=== PATIENT | male | born 1955 | race Hispanic/Latino ===

== ENCOUNTER 2020-09-18 10:37 | Emergency (ER) | payer OTHER ==
--- OUTSIDE RECORDS SUMMARY | 2020-09-18 10:40 | XMS REPORT | Clinical Summary ---
:1955 Author Organization [facility] Address [address] [place] [address] Care Team Providers Name Role Phone Amanda Salazar MD Primary Care Provider [phone] Allergies Active Allergy Reactions Severity Noted Date Comments Dexlansoprazole 10/28/2016 Etodolac 10/28/2016 Grape Juice Hives 11/21/2008 Iodine Diarrhea 11/21/2008 Nausea, fever, sweating Nausea, fever, sweating Iodine And Iodide Containing Products Levofloxacin Other (See Comments) 12/10/2017 Meloxicam Penicillins Hives 11/21/2008 Patient states he is not allergic per allergy testing . Medications Medication Sig Dispensed Refills Start Date End Date Status allopurinol (ZYLOPRIM) Take 300 mg by 3 09/24/2016 Active 300 MG tablet mouth once daily. clonAZEPAM (KlonoPIN) 1 Take 1 mg by 3 08/16/2016 Active MG tablet mouth nightly. omeprazole (PriLOSEC) TAKE ONE CAPSULE 0 10/02/2016 Active 40 MG capsule BY MOUTH EVERY DAY BEFORFE A MEAL atorvastatin (LIPITOR) Take 10 mg by 4 08/03/2016 Active 10 MG tablet mouth once daily. irbesartan (AVAPRO) 300 Take 300 mg by 0 10/02/2016 Active MG tablet mouth once daily. amLODIPine (NORVASC) 10 Take 10 mg by 0 10/02/2016 Active mg tablet mouth once daily. carvedilol (COREG) TAKE 1 TABLET BY 0 10/02/2016 Active 3.125 MG tablet MOUTH 2 TIMES A DAY WITH FOOD ACCU-CHEK MERISSA PLUS 3 (three) times a 5 10/07/2016 Active TEST STRP strip test day. strips HEMATINIC/FOLIC ACID Take 1 tablet by 4 09/09/2016 Active 324 mg (106 mg iron)-1 mouth once daily. mg tablet per tablet ACCU-CHEK MULTICLIX TO TEST GLUCOSE 3 09/23/2016 Active LANCET lancets LEVELS 3 TIMES A DAY DX CODE: 250.02 aspirin (ECOTRIN) 81 MG Take 81 mg by 0 Active enteric coated tablet mouth daily. cyanocobalamin, vitamin Place under the 0 Active B-12, (VITAMIN B-12) tongue daily. 1,000 mcg tablet, sublingual cholecalciferol, Take by mouth 0 Active vitamin D3, (VITAMIN daily. D3) 5,000 unit tablet CIALIS 5 mg tablet Take 5 mg by 11 03/01/2017 Active mouth once daily. ONETOUCH DELICA LANCETS USE TO TEST 3 3 08/19/2017 Active 33 gauge misc TIMES A DAY DX: E11.65 metFORMIN (GLUCOPHAGE) Take 1,000 mg by 0 03/12/2010 Active 1,000 mg tablet mouth. Active Problems Problem Noted Date Gout involving toe of left foot 11/22/2018 Overview: Taking Allopurinol 300mg qd no recent gout flare up usually in left toe Last Assessment & Plan: Will continue Allopurinol Polyp of colon 11/22/2018 Overview: H/o colon polyps, also brother has h/o Colon Cancer Last Colonoscopy in 2015 Had Cologuard in 2017 Last Assessment & Plan: See GI for Colonoscopy- Sees Dr Fox Alvarado's esophagus with dysplasia 11/22/2018 Dizzinesses 11/19/2017 Overview: c/o dizziness denies cp/sob/cai Saw equipment oiler Dr Jabari Ndiaye and had Negative Cardiac workup Last Assessment & Plan: Dizziness is worse Had cardiac workup- EKG was normal- Dr Ankur Ndiaye Refer to ENT- Dr Connell/ Dr Thurman Prostatitis, acute 11/19/2017 Overview: sees Uro-Dr Gaines Symptoms improved after Doxy Has regular f/u with Urology and PSA amandeep ck Last Assessment & Plan: Managed by urology Dr Gaines Benign essential hypertension 02/20/2009 Overview: Here for HTN management- Home readings 120-130/80s Taking Avapro 300mg qd, Coreg 3.125mg bi d No CP/SOB/edema/Palpitations Reports dizziness off and on For Dizziness- Seen equipment oiler Dr Tomy Ndiaye- had EKG- normal, had normal Carotid Doppler-Jabari Ndiaye , had 7 days Holter- waiting results-, was told no Stress test needed at this time. was told to see ENT- not seen ENT Seen Dr Heena Cruz requests tania dubon ENT referral Last Assessment & Plan: BP is at goal, recommended to continue HTN meds Morbid obesity 02/20/2009 Overview: No dietary modification or exercise currently Last Assessment & Plan: Diet and Exercise modification discussed in order to achieve an optimal BMI around 25 to maintain healthy lifestyle Diabetes mellitus 02/20/2009 Overview: Managed by Endocrine, Dr Lamar Ricardo Taking Metformin 500mg bid , last HbA1C 5.3 in 09/2018 had Diabates eye exam-and Glaucoma test ing-Dr Bhatti in [place] Last Assessment & Plan: Controlled continue with current treatment Immunizations Name Administration Dates Next Due Influenza, Unspecified 05/18/2018 Pneumococcal Conjugate 13-Valent 06/03/2018 Tdap 06/03/2018 Surgical History Surgery Date Site/Laterality Comments APPENDECTOMY COLONOSCOPY 10/31/2015 Dr Abhinav murdock- sessile polyps, Diverticula in descending colon , Hemorrhoids- Int and Ext UPPER GASTROINTESTINAL ENDOSCOPY GALLBLADDER SURGERY ORTHOPEDIC SURGERY SINUS SURGERY SPINE SURGERY RESECTION, COLON, 08/17/2003 - Dr Tello- G en ABDOMINOPERINEAL 08/16/2004 Surgery, sec to blockage COLONOSCOPY W/ POLYPECTOMY 08/17/2000 - Pre-C ancerous lesions 08/16/2001 ESOPHAGOSCOPY / EGD 10/20/2011 Alvarado's Es ophagus- Dr Fox STEROID INJECTION KNEE 08/17/2015 - Left Sess Orth o- Dr Fajardo 08/16/2016 [place] Medical History Medical History Date Comments Allergic Anemia Arthritis Diabetes mellitus (HCC) GERD (gastroesophageal reflux disease) Headache HL (hearing loss) Hypertension 07/06/2014 Nuclear Stress Test- normal, Dr Jabari Ndiaye in [place] Visual impairment Morbid obesity (HCC) Family History Medical History Relation Name Comments Colon cancer Brother Dewey Colon polyps Brother Laz pre-cancerous po lyps Diabetes Brother Laz Heart disease Brother Laz Diabetes type II Brother Maurice Arthritis Father Hearing loss Father Arthritis Mother Diabetes Mother Colon cancer Sister Relation Name Status Comments Brother Dewey Brother Laz Alive Brother Maurice Alive Father Mother Sister Social History Tobacco Use Types Packs/Day Years Used Date Former Smoker Cigarettes 1.5 15 12/19/1964 - 0 12/19/1981 Smokeless Tobacco: Never Used Tobacco Cessation: Counseling Given: No Alcohol Use Drinks/Week oz/Week Comments No Sex Assigned at Date Recorded Not on file Last Filed Vital Signs Not on file Plan of Treatment Health Maintenance Due Date Last Done Comments DIABETIC FOOT EXAM 1963 URINE MICROALBUMIN 1963 COVID-19 VACCINE (1 of 2) 1969 SHINGLES VACCINES (#1) 2003 65+ PNEUMOCOCCAL VACCINE (2 of 2 - PPSV23) 06/03/201906/03, 10/19/2011 INFLUENZA VACCINE 03/17/2020 05/18/2018, 05/18/2018 DIABETES: RETINAL EYE EXAM 11/04/2020 11/04/2018 COLONOSCOPY SCREENING 07/20/2028 07/20/2018, 05/17/2016 Results Not on fileafter 09/18/2019 Advance Directives For more information, please contact: [phone] Type Date Recorded Patient System Administration Manager Explanati on Advance Directives, Living Will and Medical Power of Building Guard Deputy Sheriff
[2020-09-18 12:10] LABS: Urine Blood NEGATIVE (NEG); Urine Glucose NEGATIVE (NEG); Urine Protein NEGATIVE (NEG)
[2020-09-18 14:05] LABS: Absolute Lymphocytes (CBC) 1.7 K/uL (0.7-4.9); Hematocrit 42.6 % (39.6-49.0); Lymphocytes % 25.2 % (15.3-44.8); MPV 8.7 fL (7.6-11.3); RBC Red Blood Cell Count 4.43 M/uL (4.33-5.43)
--- NOTE | 2020-09-18 14:09 | RAD REPORT ---
EXAM DESCRIPTION: RAD - Chest Single View - 09/18/2020 1:49 pm CLINICAL HISTORY: chills COMPARISON: Two view chest December 2010 TECHNIQUE: AP portable chest image was obtained 09/18/2020 1:49 pm . FINDINGS: No focal lung parenchymal process. Interstitial pattern is not substantially different whe n adjusting for portable technique and more shallow inspiratory effort. Failure and volume overload a re not suspected. Heart and vasculature are normal. No measurable pleural effusion and no pneumothora x. No acute bony abnormality seen. No acute aortic findings suspected. IMPRESSION: No acute cardiopulmonary process. No significant change from comparison study.
[2020-09-18 14:25] LABS: Urine Bacteria NONE SEEN /HPF (NONE SEEN); Urine RBC <5 /HPF (NONE SEEN)
[2020-09-18 14:25] LABS: Albumin 4.5 g/dL (3.4-5.0); Bilirubin Total 0.6 mg/dL (0.2-1.0); Protein, Total 7.8 g/dL (6.4-8.2)
--- NOTE | 2020-09-18 15:14 | ER ---
Nurse's Notes [facility] Name: Facundo Pfeiffer Age: 65 yrs Sex: Male : 1955 Arrival Date: 09/18/2020 Time: 10:42 Bed 4 Private MD: Diagnosis: Chills (without fever) Presentation: 09/18 11:15 Chief complaint: Patient states: started having chills last night and has pain at the iw tip of his penis, pt is uncircumcised, it doesn't burn to urinate, denies redness or swelling. Coronavirus screen: chills. Ebola Screen: Patient negative for fever greater than or equal to 101.5 degrees Fahrenheit, and additional compatible Ebola Virus Disease symptoms Patient denies exposure to infectious person. Patient denies travel to an Ebola-affected area in the 21 days before illness onset. No symptoms or risks identified at this time. Initial Sepsis Screen: Does the patient meet any 2 criteria? No. Patient's initial sepsis screen is negative. Does the patient have a suspected source of infection? No. Patient's initial sepsis screen is negative. Risk Assessment: Do you want to hurt yourself or someone else? Patient reports no desire to harm self or others. Onset of symptoms was September 17, 2020. 11:15 Method Of Arrival: Ambulatory iw 11:15 Acuity: WILBER 3 iw Historical: - Allergies: 11:21 Dexilant; iw 11:21 Iodine; iw 11:21 tramadol; iw 11:21 Etodolac; iw - Home Meds: 11:21 metformin 500 mg Oral Tb24 2 tabs 2 times per day [Active]; irbesartan 300 mg oral tab iw 1 tab once daily [Active]; amlodipine 10 mg tab once daily [Active]; carvedilol 3.125 mg oral tab 1 tab 2 times per day [Active]; Vitamin D Oral daily [Active]; allopurinol 300 mg Oral tab 1 tab once daily [Active]; hemantic plus daily [Active]; omeprazole 40 mg Oral cpDR 1 cap once daily [Active]; atorvastatin 10 mg oral tab 1 tab once daily [Active]; aspirin 81 mg Oral TbEC 1 tab once daily [Active]; latanoprost 0.005 % ophthalmic drop 1 drop once daily [Active]; - PMHx: 11:21 Hypertension; Diabetes - NIDDM; Gout; Anemia; Alvarado's esophagus; Hyperlipidemia; iw tremors; - PSHx: 11:18 right knee sx; iw 11:21 back; iw 11:22 colon resection; Cholecystectomy; neck; back; iw - Immunization history:: Adult Immunizations up to date. - Social history:: Smoking status: Patient/guardian denies using tobacco, but has a distant history of tobacco abuse, Patient/guardian denies using alcohol, street drugs, The patient lives with family. - Family history:: not pertinent. Screenin:09 Abuse screen: Denies threats or abuse. Denies injuries from another. Nutritional jl7 screening: No deficits noted. Tuberculosis screening: No symptoms or risk factors identified. Fall Risk None identified. Assessment: 13:00 General: Appears in no apparent distress. uncomfortable, Behavior is calm, cooperative, jl7 appropriate for age. Pain: Complains of pain in head of penis Pain currently is 5 out of 10 on a pain scale. Pain began 2-3 days ago. Neuro: Level of Consciousness is awake, alert, obeys commands, Oriented to person, place, time, situation. Cardiovascular: Patient's skin is warm and dry. Respiratory: Airway is patent Respiratory effort is even, unlabored, Respiratory pattern is regular, symmetrical. GI: No signs and/or symptoms were reported involving the gastrointestinal system. : Reports pain head of penis Denies burning with urination, pain with urination. Derm: Skin is pink, warm \\T\\ dry. 13:09 Reassessment: ERD at bedside. jl7 13:11 Reassessment: Pt reports "I have diabetes and my sugar might be low." BGL checked, 106. jl7 14:00 Reassessment: Patient appears in no apparent distress at this time. No changes from jl7 previously documented assessment. Patient and/or family updated on plan of care and expected duration. Pain level reassessed. Patient is alert, oriented x 3, equal unlabored respirations, skin warm/dry/pink. 15:00 Reassessment: Patient appears in no apparent distress at this time. No changes from jl7 previously documented assessment. Patient and/or family updated on plan of care and expected duration. Pain level reassessed. Patient is alert, oriented x 3, equal unlabored respirations, skin warm/dry/pink. 15:15 Reassessment: ERD at bedside discussing POC. jl7 Vital Signs: 11:15 BP 130 / 61; Pulse 88; Resp 16; Temp 98.4; Pulse Ox 100% on R/A; Weight 91.63 kg; iw Height 5 ft. 7 in. (170.18 cm); 13:09 BP 139 / 59; Pulse 94; Resp 15; Pulse Ox 100% ; Pain 5/10; jl7 14:43 BP 119 / 50; Pulse 91; Resp 15; Pulse Ox 100% ; jl7 11:15 Body Mass Index 31.64 (91.63 kg, 170.18 cm) iw ED Course: 10:42 Patient arrived in ED. as 11:17 Triage completed. iw 11:18 Arm band placed on. iw 12:57 Norah Galvez MD is Attending Physician. ma2 12:59 Kyaw Meza RN is Primary Nurse. jl7 13:09 Patient has correct armband on for positive identification. Bed in low position. Call [facility] light in reach. Side rails up X 1. Pulse ox on. NIBP on. 13:11 Urine collected: clean catch specimen, clear. 5 13:18 Glucose, Ancillary Testing Sent. 5 13:18 Urine Microscopic Only Sent. 5 13:18 Urine Dipstick--Ancillary (enter results) Sent. 5 13:49 CXR XRAY In Process Unspecified. EDMS 13:57 Initial lab(s) drawn, by ut, sent to lab. COVID swab sent to lab. Flu and/or RSV swab mh5 sent to lab. Strep swab sent to lab. Inserted saline lock: 20 gauge in right antecubital area, using aseptic technique. Blood collected. 13:58 Flu Sent. 5 13:58 Comprehensive Metabolic Panel Sent. 5 13:58 CBC with Automated Diff Sent. 5 13:58 Strep Sent. 5 13:58 CMP Sent. 5 13:58 CBC with Diff Sent. mh5 14:02 CBC with Automated Diff Sent. 5 14:02 Strep Sent. 5 14:02 Comprehensive Metabolic Panel Sent. mh5 15:13 Chong Pena MD is Referral Physician. ma2 15:21 No provider procedures requiring assistance completed. IV discontinued, intact, jl7 bleeding controlled, No redness/swelling at site. Pressure dressing applied. Administered Medications: No medications were administered Outcome: 15:13 Discharge ordered by . chaim 15:21 Discharged to home ambulatory. 7 15:21 Condition: stable 15:21 Discharge instructions given to patient, Instructed on discharge instructions, follow up and referral plans. medication usage, Demonstrated understanding of instructions, follow-up care, medications, Prescriptions given X 1. 15:22 Patient left the ED. 7 Signatures: Dispatcher [employer] EDMT Angelica Tello Irene, RN RN Abena Tello [facility] Kyaw Meza RN RN 7 Norah Galvez MD MD ma2 Corrections: (The following items were deleted from the chart) 14:35 13:58 CORONAVIRUS+MR.LAB.BRZ drawn and sent. [address] 14:35 13:58 Influenza Screen (A drawn and sent. [address]
--- NOTE | 2020-09-18 15:14 | EDPHYS ---
Physician Documentation [facility] Name: Facundo Pfeiffer Age: 65 yrs Sex: Male : 1955 Arrival Date: 09/18/2020 Time: 10:42 Bed 4 Private MD: ED Physician Norah Galvez HPI: 09/18 15:10 This 65 yrs old Male presents to ER via Ambulatory with complaints of Urinary ma2 Problem, chills. 15:10 Onset: The symptoms/episode began/occurred gradually, 1 day(s) ago. Severity of ma2 symptoms: At their worst the symptoms were mild in the emergency department the symptoms are unchanged. Severity of symptoms: At their worst the symptoms were in the emergency department the symptoms have resolved. The patient has not experienced similar symptoms in the past. Historical: - Allergies: 11:21 Dexilant; iw 11:21 Iodine; iw 11:21 tramadol; iw 11:21 Etodolac; iw - Home Meds: 11:21 metformin 500 mg Oral Tb24 2 tabs 2 times per day [Active]; irbesartan 300 mg oral tab iw 1 tab once daily [Active]; amlodipine 10 mg tab once daily [Active]; carvedilol 3.125 mg oral tab 1 tab 2 times per day [Active]; Vitamin D Oral daily [Active]; allopurinol 300 mg Oral tab 1 tab once daily [Active]; hemantic plus daily [Active]; omeprazole 40 mg Oral cpDR 1 cap once daily [Active]; atorvastatin 10 mg oral tab 1 tab once daily [Active]; aspirin 81 mg Oral TbEC 1 tab once daily [Active]; latanoprost 0.005 % ophthalmic drop 1 drop once daily [Active]; - PMHx: 11:21 Hypertension; Diabetes - NIDDM; Gout; Anemia; Alvarado's esophagus; Hyperlipidemia; iw tremors; - PSHx: 11:18 right knee sx; iw 11:21 back; iw 11:22 colon resection; Cholecystectomy; neck; back; iw - Immunization history:: Adult Immunizations up to date. - Social history:: Smoking status: Patient/guardian denies using tobacco, but has a distant history of tobacco abuse, Patient/guardian denies using alcohol, street drugs, The patient lives with family. - Family history:: not pertinent. ROS: 15:10 Constitutional: Negative for fever, chills, and weight loss. ma2 15:10 All other systems are negative. Exam: 15:10 Constitutional: This is a well developed, well nourished patient who is awake, alert, ma2 and in no acute distress. Head/Face: Normocephalic, atraumatic. Eyes: Pupils equal round and reactive to light, extra-ocular motions intact. Lids and lashes normal. Conjunctiva and sclera are non-icteric and not injected. Cornea within normal limits. Periorbital areas with no swelling, redness, or edema. ENT: Nares patent. No nasal discharge, no septal abnormalities noted. Tympanic membranes are normal and external auditory canals are clear. Oropharynx with no redness, swelling, or masses, exudates, or evidence of obstruction, uvula midline. Mucous membranes moist. Neck: Trachea midline, no thyromegaly or masses palpated, and no cervical lymphadenopathy. Supple, full range of motion without nuchal rigidity, or vertebral point tenderness. No Meningismus. Chest/axilla: Normal chest wall appearance and motion. Nontender with no deformity. No lesions are appreciated. Cardiovascular: Regular rate and rhythm with a normal S1 and S2. No gallops, murmurs, or rubs. Normal PMI, no JVD. No pulse deficits. Respiratory: Lungs have equal breath sounds bilaterally, clear to auscultation and percussion. No rales, rhonchi or wheezes noted. No increased work of breathing, no retractions or nasal flaring. Abdomen/GI: Soft, non-tender, with normal bowel sounds. No distension or tympany. No guarding or rebound. No evidence of tenderness throughout. Back: No spinal tenderness. No costovertebral tenderness. Full range of motion. Skin: Warm, dry with normal turgor. Normal color with no rashes, no lesions, and no evidence of cellulitis. MS/ Extremity: Pulses equal, no cyanosis. Neurovascular intact. Full, normal range of motion. Neuro: Awake and alert, GCS 15, oriented to person, place, time, and situation. Cranial nerves II-XII grossly intact. Motor strength 5/5 in all extremities. Sensory grossly intact. Cerebellar exam normal. Normal gait. Vital Signs: 11:15 BP 130 / 61; Pulse 88; Resp 16; Temp 98.4; Pulse Ox 100% on R/A; Weight 91.63 kg; iw Height 5 ft. 7 in. (170.18 cm); 13:09 BP 139 / 59; Pulse 94; Resp 15; Pulse Ox 100% ; Pain 5/10; jl7 14:43 BP 119 / 50; Pulse 91; Resp 15; Pulse Ox 100% ; jl7 11:15 Body Mass Index 31.64 (91.63 kg, 170.18 cm) iw MDM: 12:57 Patient medically screened. ma2 15:10 Differential Diagnosis uti, covid, vs electrolyte disturbance vs uri. Data reviewed: ma2 vital signs, nurses notes. Counseling: I had a detailed discussion with the patient and/or guardian regarding: the historical points, exam findings, and any diagnostic results supporting the discharge/admit diagnosis, the presence of at least one elevated blood pressure reading (>120/80) during this emergency department visit, the need for outpatient follow up. Response to treatment: the patient's symptoms have markedly improved after treatment. ED course: discussed with dr. Pena he advised for discharge, all test negative, covid is pending... 09/18 11:44 Order name: Urine Microscopic Only; Complete Time: 14:42 09/18 11:48 Order name: Urine Dipstick--Ancillary (enter results) 09/18 12:10 Order name: Urine Dipstick-Ancillary; Complete Time: 13:27 [facility] 09/18 13:16 Order name: Glucose, Ancillary Testing [facility] 09/18 13:29 Order name: CBC with Diff [facility] 09/18 13:29 Order name: CMP la2 09/18 13:29 Order name: Flu la2 09/18 13:29 Order name: Strep; Complete Time: 14:16 [facility] 09/18 13:29 Order name: CBC with Automated Diff; Complete Time: 14:16 [facility] 09/18 13:29 Order name: Comprehensive Metabolic Panel; Complete Time: 14:42 [facility] 09/18 14:14 Order name: Throat Culture [facility] 09/18 11:44 Order name: Urine Dipstick-Ancillary (obtain specimen); Complete Time: 13:03 09/18 11:53 Order name: Labs - recollect needed: recollect urine,sample leaked; Complete Time: 13:03 09/18 13:29 Order name: CXR XRAY; Complete Time: 14:16 ma2 Administered Medications: No medications were administered Disposition: 09/18/20 15:13 Discharged to Home. Impression: Chills (without fever). - Condition is Stable. - Discharge Instructions: Dysuria. - Prescriptions for Diclofenac Sodium 75 mg Oral Tablet Sustained Release - take 1 tablet by ORAL route 2 times per day; 30 tablet. - Medication Reconciliation Form, Thank You Letter, Antibiotic Education, Prescription Opioid Use form. - Follow up: Chong Pena MD; When: Tomorrow; Reason: Continuance of care. Signatures: Dispatcher [employer] EDMS Ary Helms Irene, RN RN iw Kyaw Meza RN RN jl7 Norah Galvez MD MD ma2 Corrections: (The following items were deleted from the chart) 14:35 13:29 Influenza Screen (A ordered. EDMS EDMS 14:35 13:37 CORONAVIRUS+MR.LAB.BRZ ordered. EDMS EDMS 15:22 15:13 09/18/2020 15:13 Discharged to Home. Impression: Chills (without fever). jl7 Condition is Stable. Prescriptions for Diclofenac Sodium 75 mg Oral Tablet Sustained Release - take 1 tablet by ORAL route 2 times per day; 30 tablet. and Forms are Medication Reconciliation Form, Thank You Letter, Antibiotic Education, Prescription Opioid Use. Follow up: Chong Pena; When: Tomorrow; Reason: Continuance of care. ma2
[2020-09-18 15:26] VITALS: TEMP 98.4; O2SAT 100
[2020-09-18 15:29] VITALS: BP 119/50
[2020-09-18 15:46] LABS: SARS-COV-2 RT PCR NEGATIVE (NEGATIVE)
== END 2020-09-18 15:22 | disposition home or self-care (01) ==
LOC: ER 10:37
DX: R68.83 Chills (without fever) (principal); Z20.822 Contact with and (suspected) exposure to COVID-19; I10 Essential (primary) hypertension; E11.9 Type 2 diabetes mellitus without complications; M10.9 Gout, unspecified; E78.5 Hyperlipidemia, unspecified; K22.70 Barrett's esophagus without dysplasia; Z79.84 Long term (current) use of oral hypoglycemic drugs
CPT/HCPCS: 87070; 85025; 36415; 82947; 87081; 80053; 0240U; 71045; 99284; 81003; 81015

== ENCOUNTER 2021-03-26 08:20 | Emergency (ER) | payer OTHER ==
[2021-03-26 09:31] LABS: Protime INR 1.03
[2021-03-26 09:34] LABS: Basophils % 0.9 % (0-1.3); Hematocrit 43.4 % (39.6-49.0); MPV 8.5 fL (7.6-11.3); RBC Red Blood Cell Count 4.55 M/uL (4.33-5.43)
[2021-03-26 09:36] LABS: ALT/SGPT 32 U/L (12-78); AST/SGOT 17 U/L (15-37); Albumin 4.3 g/dL (3.4-5.0); Alkaline Phosphatase 122 U/L (45-117); BUN Blood Urea Nitrogen 15 mg/dL (7-18); Bicarbonate 28 mmol/L (21-32); Bilirubin Direct 0.2 mg/dL (0-0.2); Bilirubin Total 0.7 mg/dL (0.2-1.0); Glucose Level 108 mg/dL (74-106); Magnesium 2.4 mg/dL (1.8-2.4); NT PRO-BNP 53 pg/mL (<125); Potassium 3.9 mmol/L (3.5-5.1); Protein, Total 7.4 g/dL (6.4-8.2); Sodium Level 140 mmol/L (136-145); Troponin (Emerg Dept Use Only) < 0.02 ng/mL (0.0-0.045)
--- NOTE | 2021-03-26 09:53 | RAD REPORT ---
EXAM DESCRIPTION: RAD - Chest Single View - 03/26/2021 9:32 am CLINICAL HISTORY: PALPITATIONS COMPARISON: September 18, 2020 TECHNIQUE: AP portable chest image was obtained 03/26/2021 9:32 am . FINDINGS: No focal lung parenchymal process. Interstitial pattern matches comparison. Heart and vasc ulature are normal. No measurable pleural effusion and no pneumothorax. No acute bony abnormality see n. No acute aortic findings suspected. IMPRESSION: No acute cardiopulmonary process. No significant change from comparison study.
--- NOTE | 2021-03-26 10:51 | RAD REPORT ---
EXAM DESCRIPTION: CT - Thorax Wo Con - 03/26/2021 10:02 am CLINICAL HISTORY: PALPITATIONS COMPARISON: <Comparisons> TECHNIQUE: Axial 5 mm thick images of the chest were obtained without IV contrast. All CT scans are performed using dose optimization technique as appropriate and may include automated exposure control or mA/KV adjustment according to patient size. FINDINGS: No mass or infiltrate in the lung parenchyma. No pleural thickening or pleural effusion. N o pneumothorax. No abnormal mediastinal or hilar masses or lymphadenopathy seen. No gross aortic or pulmonary artery finding suspected. Assessment is limited in the absence of IV contrast. No cardiomegaly or pericardi al effusion. No chest wall mass or abnormal axillary lymphadenopathy. No fracture or acute bone finding identifiab le. Endplate spurring changes are seen at multiple levels with bridging ossification across multiple levels. IMPRESSION: Negative non-contrast CT chest examination for acute finding.
--- NOTE | 2021-03-26 10:57 | ER ---
Nurse's Notes [facility] Name: Facundo Pfeiffer Age: 66 yrs Sex: Male : 1955 Arrival Date: 03/26/2021 Time: 08:55 Bed Waiting Private MD: Diagnosis: Palpitations Presentation: 03/26 08:55 Chief complaint: Patient states: palpatation from December. da3 08:55 Method Of Arrival: EMS da3 08:55 Acuity: WILBER 3 da3 08:58 Ebola Screen: No symptoms or risks identified at this time. Risk Assessment: Do you da3 want to hurt yourself or someone else? Patient reports no desire to harm self or others. 08:58 Acuity: WILBRE 3 da3 Triage Assessment: 08:59 General: Appears in no apparent distress. comfortable. da3 Historical: Vital Signs: 08:58 BP 119 / 62; Pulse 78; Resp 18; Temp 98.2; Pulse Ox 100% on R/A; da3 ED Course: 08:52 Initial lab(s) drawn, by me, sent to lab. Inserted saline lock: in right antecubital kj1 area, using aseptic technique. Blood collected. 08:55 Patient arrived in ED. ds1 08:56 Triage completed. da3 09:00 Sona Oconnor FNP-C is [facility]. kb 09:00 Jamar Gibbs MD is Attending Physician. kb 09:33 XRAY Chest (1 view) In Process Unspecified. EDMS 10:02 Thorax Wo Con In Process Unspecified. EDMS Administered Medications: No medications were administered Outcome: 10:56 Discharge ordered by . kb 11:02 Patient left the ED. da3 Signatures: Dispatcher [employer] EDMS Sona Oconnor FNP-C FNP-Ckb Sanford, Demi ds1 Isela Oconnor kj1 Korey Goel RN RN da3 Corrections: (The following items were deleted from the chart) 08:57 08:56 PMHx: Hypertension; da3 da3 08:57 08:56 PMHx: Diabetes - NIDDM; da3 da3 08:57 08:56 PMHx: Gout; da3 da3 08:57 08:56 PMHx: Anemia; da3 da3 08:57 08:56 PMHx: Alvarado's Esophagus; da3 da3 08:57 08:56 PMHx: Hyperlipidemia; da3 da3 08:57 08:56 PMHx: tremors; da3 da3
--- NOTE | 2021-03-26 10:57 | EDPHYS ---
Physician Documentation [facility] Name: Facundo Pfeiffer Age: 66 yrs Sex: Male : 1955 Arrival Date: 03/26/2021 Time: 08:55 Bed Waiting Private MD: ED Physician Jamar Gibbs HPI: 03/26 10:33 This 66 yrs old Male presents to ER via EMS with complaints of Palpitations. kb 10:33 The patient presents with a history of irregular heart beat. Context: The symptoms kb occur without known cause. Onset: The symptoms/episode began/occurred 4 month(s) ago, and became worse this morning. Duration: The patient or guardian reports multiple episodes. Modifying factors: The symptoms are aggravated by nothing. The symptoms are alleviated by nothing. Associated signs and symptoms: Pertinent positives: fatigue, Pertinent negatives: chest pain, cough, lightheadedness, SOB, syncope. Severity of symptoms: At their worst the symptoms were mild in the emergency department the symptoms are unchanged. The patient has not experienced similar symptoms in the past. The patient has not recently seen a physician. Pt reports he started feeling an irregular heartbeat in December. States they increased his carvidolol from 3.125mg to 6.25mg at the time. Then he started having dizziness and fainting spells so they decreased it back to 3.125. States he has continued to have the irregular heartbeat at times. Today he felt the irregular heartbeat and had fatigue. . Historical: ROS: 10:33 Respiratory: Negative for shortness of breath, cough, wheezing, and pleuritic chest kb pain. 10:33 Constitutional: Positive for fatigue, Negative for body aches, chills, fever, malaise, poor PO intake, weight loss. 10:33 Cardiovascular: Positive for palpitations. 10:33 All other systems are negative. Exam: 09:31 ECG was reviewed by the Attending Physician. kb 10:32 Constitutional: This is a well developed, well nourished patient who is awake, alert, kb and in no acute distress. Head/Face: Normocephalic, atraumatic. ENT: Moist Mucous membranes Cardiovascular: Regular rate and rhythm with a normal S1 and S2. No gallops, murmurs, or rubs. No pulse deficits. Respiratory: Respirations even and unlabored. No increased work of breathing, no retractions or nasal flaring. Abdomen/GI: Soft, non-tender. No distention Skin: Warm, dry with normal turgor. Normal color. MS/ Extremity: Pulses equal, no cyanosis. Neurovascular intact. Full, normal range of motion. Neuro: Awake and alert, GCS 15, oriented to person, place, time, and situation. Moves all extremities. Normal gait. Psych: Awake, alert, with orientation to person, place and time. Behavior, mood, and affect are within normal limits. Vital Signs: 08:58 BP 119 / 62; Pulse 78; Resp 18; Temp 98.2; Pulse Ox 100% on R/A; da3 MDM: 09:00 Patient medically screened. kb 10:00 Data reviewed: vital signs, nurses notes. Data interpreted: Pulse oximetry: on room air kb is 100 %. Interpretation: normal. 10:55 Counseling: I had a detailed discussion with the patient and/or guardian regarding: the kb historical points, exam findings, and any diagnostic results supporting the discharge/admit diagnosis, lab results, radiology results, the need for outpatient follow up, a seating captain, to return to the emergency department if symptoms worsen or persist or if there are any questions or concerns that arise at home. 03/26 09:01 Order name: Basic Metabolic Panel; Complete Time: :41 kb 03/26 09:01 Order name: CBC with Diff; Complete Time: :41 kb 03/26 09:01 Order name: LFT's; Complete Time: :41 kb 03/26 09: Order name: Magnesium; Complete Time: :41 kb 03/26 09: Order name: NT PRO-BNP; Complete Time: :41 kb 03/26 09:01 Order name: PT-INR; Complete Time: :41 kb 03/26 09:01 Order name: Troponin (emerg Dept Use Only); Complete Time: :41 kb 03/26 09: Order name: XRAY Chest (1 view); Complete Time: 09:56 kb 03/26 09: Order name: EKG; Complete Time: 09:01 kb 03/26 09:01 Order name: Cardiac monitoring kb 03/26 09: Order name: EKG - Nurse/Tech kb 03/26 09:01 Order name: IV Saline Lock 03/26 09:59 Order name: Thorax Wo Con; Complete Time: 10:53 EDMS 03/26 09:01 Order name: Labs collected and sent 03/26 09:01 Order name: O2 Per Protocol 03/26 09:01 Order name: O2 Sat Monitoring EC:31 Rate is 76 beats/min. Rhythm is regular. QRS [place] is Normal. DC interval is normal at kb 166 msec. QRS interval is normal at 78 msec. QT interval is normal at 348 msec. Administered Medications: No medications were administered Disposition: 12:50 Co-signature as Attending Physician, Jamar Gibbs MD I agree with the assessment and rn plan of care. Attestation: The patient's history, exam findings, diagnostics, and a summary of any interventions or procedures was reviewed in detail with Sona MCCLENDON. Disposition Summary: 03/26/21 10:56 Discharge Ordered Location: Home kb Condition: Stable kb Diagnosis - Palpitations kb Followup: kb - With: Emergency Department - When: As needed - Reason: Worsening of condition Followup: kb - With: Private Physician - When: 2 - 3 days - Reason: Recheck today's complaints, Continuance of care, Re-evaluation by your physician Discharge Instructions: - Discharge Summary Sheet kb - Palpitations, [id number] kb Forms: - Medication Reconciliation Form kb - Thank You Letter kb - Antibiotic Education kb - Prescription Opioid Use kb Signatures: Dispatcher [employer] [facility] Sona Oconnor FNP-C FNP-Jamar Ga MD MD rn Allan, David RN RN da3 Corrections: (The following items were deleted from the chart) 08:57 08:56 PMHx: Hypertension; da3 da3 08:57 08:56 PMHx: Diabetes - NIDDM; da3 da3 08:57 08:56 PMHx: Gout; da3 da3 08:57 08:56 PMHx: Anemia; da3 da3 08:57 08:56 PMHx: Alvarado's Esophagus; da3 da3 08:57 08:56 PMHx: Hyperlipidemia; da3 da3 08:57 08:56 PMHx: tremors; da3 da3 09:59 09:32 Chest For PE Angio+[id number].[id number] ordered. EDDC EDMS 10:56 10:55 Counseling: I had a detailed discussion with the patient and/or guardian celia regarding: the historical points, exam findings, and any diagnostic results supporting the discharge/admit diagnosis, lab results, radiology results, the need for outpatient follow up, a family practitioner, to return to the emergency department if symptoms worsen or persist or if there are any questions or concerns that arise at home, celia
[2021-03-26 11:18] VITALS: BP 119/62; TEMP 98.2; O2SAT 100
--- NOTE | 2021-03-27 07:33 | EKG ---
Test Date: 2021-03-26 Test Time: 08:58:36 [employer] Conservationist: ARNALDO MEASUREMENT RESULTS: Intervals: Rate: 76 MT: 166 QRSD: 78 QT: 348 QTc: 391 [place]: P: 40 MT: 166 QRS: -12 T: 48 INTERPRETIVE STATEMENTS: Normal sinus rhythm Low voltage QRS Borderline ECG Compared to ECG 01/04/2011 09:50:50 Sinus tachycardia no longer present Left-axis deviation no longer present Electronically Signed On 03-27-21 07:31:13 CDT by Titus Perry
== END 2021-03-26 11:02 | disposition home or self-care (01) ==
LOC: ER 08:20
DX: R00.2 Palpitations (principal); R53.83 Other fatigue
CPT/HCPCS: 36415; 71045; 71250; 80048; 80076; 83735; 83880; 84484; 85025; 85610; 93005; 99284